=== PATIENT | female | born 1955 | race Hispanic/Latino ===

== ENCOUNTER 2017-12-16 11:36 | Outpatient (CLI) | payer MEDICAID ==
--- NOTE | 2017-12-16 12:10 | XRay Report ---
Right knee: Pain. Standing views of the right knee demonstrates severe narrowing of the medial joint compartment with periarticular spurs. Subchondral cysts are present involving the articular surface of the medial femoral condyle. There is a mild valgus deformity at the knee joint. The bones appear well-mineralized. No swelling and no effusion present. Impression: Significant degenerative disease of the medial compartment.
== END 2017-12-16 11:37 | disposition home or self-care (01) ==
LOC: SPVIMAG 11:36
PROVIDERS: ATTEND Orthopaedic Surgery Sports Medicine
DX: M17.11 Unilateral primary osteoarthritis, right knee (principal); M21.061 Valgus deformity, not elsewhere classified, right knee

== ENCOUNTER 2018-01-27 14:19 | Outpatient (CLI) | payer MEDICAID ==
--- NOTE | 2018-01-27 18:10 | XRay Report ---
FINAL REPORT EXAM: XR KNEE 4+V RT HISTORY: OSTEOARTHRITIS OF RIGHT KNEE TECHNIQUE: AP, oblique, sunrise, and lateral standing views of the right knee PRIORS: None. FINDINGS: Total right knee prosthesis is in place in satisfactory position and alignment. No graphic evidence for loosening is seen. No acute fracture or dislocation is seen. The soft tissues are unremarkable with no evidence for suprapatellar joint effusion. Joint spaces are maintained and bony mineralization is normal. IMPRESSION: Negative views of the right knee. Total right knee prosthesis in place.
== END 2018-01-27 14:20 | disposition home or self-care (01) ==
LOC: SPVIMAG 14:19
PROVIDERS: ATTEND Orthopaedic Surgery Sports Medicine
DX: Z47.1 Aftercare following joint replacement surgery (principal); Z96.651 Presence of right artificial knee joint